=== PATIENT | male | born 1990 | race Asian ===

== ENCOUNTER → 2017-07-19 | Outpatient (CLI) | payer OTHER ==
[~2017-07-19] MED LIST: CONRAY-43 43% 50ML VIAL (Q9960) As Ordered ONE; PROHANCE 279.3MG/ML 5ML VIAL (A9576) As Ordered ONE
--- NOTE | 2017-07-19 09:03 | REP ---
MR arthrogram left hip: History: Left hip pain. Comparison studies: No comparison study . Technique: Precontrast imaging includes coronal T1 and T2-weighted scans of both hips. Postcontrast small field of view high resolution axial, coronal and sagittal images are acquired in T1 and T2-weighted scans with fat saturation. MR arthrographic findings: Preinjection MR imaging shows that cortical and medullary bone signal intensity are normal in the proximal femurs bilaterally. There is no evidence to suggest avascular necrosis. Bone signal intensity is normal in the visualized bony pelvic ring as well. There is no significant joint effusion on either side. No peritrochanteric or periarticular bursal fluid collection, cyst, or mass is seen. There is a small zone of T2-weighted edema in the soft tissues adjacent to the greater trochanter of both proximal femurs, left greater than right. This may reflect peritrochanteric tendonitis. No abdominal wall defect is seen. Visualized bladder stanley are smooth. Prostate and seminal vesicles are unremarkable. No mass or adenopathy is seen. Post injection imaging shows good filling and enhancement of the left hip articulation. There is no evidence of acetabular labral cartilage tear. No loose body is seen. Ligamentum teres is intact. No cartilage deficiency or lesion is observed. Head/neck junction morphology is normal. Impression: Mild peritrochanteric soft tissue edema adjacent to the greater trochanter, question tendonitis. Otherwise unremarkable MR arthrography left hip. Signed by Chapo Quevedo MD 07/19/2017 09:38 A
--- NOTE | 2017-07-21 12:39 | REP ---
Left hip arthrogram The procedure was performed under the direction supervision of Dr. Quevedo. The benefits and risks including but not limited to pain, infection, bleeding and anaphylaxis were explained to the patient and informed consent was obtained. The left femoral neck was localized using fluoroscopic guidance. Skin was prepped and draped in a sterile fashion. 1% lidocaine was used as a local anesthetic. Using fluoroscopic guidance a 22 gauge spinal needle was inserted and advanced to the femoral neck. 0.5 ml of Conray 43 was injected to verify placement. 11 ml of a solution containing 20 ml of sterile saline and 0.15 ml of ProHance was injected into the joint. The needle was removed and the patient was taken to MRI for postprocedural imaging. The the patient tolerated the procedure well and there were no immediate complications. Less than 6 seconds of fluoro time was utilized for this procedure. Reviewed by ENID Lunsford 07/19/2017 05:49 PSigned by Chapo Quevedo MD 07/21/2017 12:31 P
== END ==
LOC: M RADPRO 07:08
PROVIDERS: ATTEND Physician Assistant
DX: M25.552 Pain in left hip (principal); R60.0 Localized edema
CPT/HCPCS: 27093; 73525; 73723; A9576; Q9960

== ENCOUNTER 2018-05-25 23:36 | Emergency (ER) | payer OTHER ==
[2018-05-26] MEDS: LIDOCAINE 1% MDV 20ML VIAL SC
== END 2018-05-26 01:20 | disposition home or self-care (01) ==
LOC: M ED 23:36
DX: S71.112A Laceration without foreign body, left thigh, initial encounter (principal); S90.812A Abrasion, left foot, initial encounter; S90.32XA Contusion of left foot, initial encounter; V18.4XXA Pedal cycle driver injured in noncollision transport accident in traffic accident, initial encounter; Y92.410 Unspecified street and highway as the place of occurrence of the external cause
CPT/HCPCS: 73630